=== PATIENT | female | born 1965 | race Caucasian/White ===

== ENCOUNTER → 2025-11-03 | Outpatient (CLI) | payer BC, SELFPAY ==
--- NOTE | 2025-11-03 09:31 | XR_ITS ---
Examination: Foot, left, 3 views Technique: AP, oblique, lateral views foot, 3 views Date and time of exam: November 03, 2025, 1021 hours INDICATIONS: Left foot pain beginning 2 to 3 months ago FINDINGS: Severe osteopenia No fracture Moderate narrowing first metatarsophalangeal joint No erosive arthritis IMPRESSION: Moderate osteoarthritis first metatarsophalangeal joint
== END | disposition home or self-care (01) ==
LOC: CDIM 09:26
PROVIDERS: PCP Student in an Organized Health Care Education/Training Program; Referring Provider Student in an Organized Health Care Education/Training Program; Visit Provider Student in an Organized Health Care Education/Training Program
DX: M19.072 Primary osteoarthritis, left ankle and foot (principal)
CPT/HCPCS: 73630